=== PATIENT | female | born 1975 | race Caucasian/White ===

== ENCOUNTER 2020-06-13 12:51 | Emergency (ER) | payer SELFPAY ==
[~2020-06-13] VITALS: Ht 157.5 cm; Wt 72.6 kg
[2020-06-13 13:07] VITALS: BP 115/77
== END 2020-06-13 13:12 | disposition left against medical advice (07) ==
LOC: EDBD 12:51 → ER 12:51
DX: R53.1 Weakness (principal); Z53.21 Procedure and treatment not carried out due to patient leaving prior to being seen by health care provider